=== PATIENT | female | born 1980 | race Caucasian/White ===

== ENCOUNTER 2017-06-02 12:30 | Outpatient (RCR) | payer SELFPAY | END 2017-06-14 | disposition home or self-care (01) | LOC: WCC 12:30 | DX: T86.828 Other complications of skin graft (allograft) (autograft) (principal); Z90.13 Acquired absence of bilateral breasts and nipples; Z90.710 Acquired absence of both cervix and uterus; Z90.89 Acquired absence of other organs; F41.9 Anxiety disorder, unspecified | CPT/HCPCS: G0277 ×2 ==